=== PATIENT | male | born 1960 | race Caucasian/White ===

== ENCOUNTER 2017-02-09 08:04 | Outpatient (CLI) | payer OTHER, MEDICAID ==
[~2017-02-09 08:04] MED LIST: ASPI-1063 PO; BENA20TA2 PO; CALC-226 PO; HYD10 PO; HYDR25TA4 PO; LEVE500T13 PO; SIMV40TA2 PO
== END 2017-02-09 20:51 | disposition home or self-care (01) ==
LOC: SMI 08:04
DX: G40.209 Localization-related (focal) (partial) symptomatic epilepsy and epileptic syndromes with complex partial seizures, not intractable, without status epilepticus (principal); D32.0 Benign neoplasm of cerebral meninges; R90.82 White matter disease, unspecified
CPT/HCPCS: 70551

== ENCOUNTER 2017-05-18 11:14 | Outpatient (CLI) | payer OTHER, MEDICAID ==
[2017-05-18] MEDS ORDERED: GADOPENTETATE DIMEGLUMINE 15 ML VIAL IV ONE (11:46)
== END 2017-05-18 19:58 | disposition home or self-care (01) ==
LOC: SMI 11:14
DX: G93.89 Other specified disorders of brain (principal); R56.9 Unspecified convulsions
CPT/HCPCS: 70553; A9579